=== PATIENT | female | born 1960 | race Caucasian/White ===

== ENCOUNTER 2018-03-16 15:51 | Emergency (ER) | payer OTHER ==
[~2018-03-16] VITALS: Ht 162.6 cm; Wt 70.0 kg
[~2018-03-16 15:51] MED LIST: ASCO500C PO; TAB-TAB PO
[2018-03-16 16:06] VITALS: BP 132/70; PULSE 68; RESP 18; TEMP 98.7; O2SAT 98
[2018-03-16] MEDS ORDERED: SODIUM CHLOR 0.9% 1000 ML INJ 1,000 ML IV ONE (16:13)
[2018-03-16 16:15] VITALS: BP 136/68; PULSE 61; RESP 18; O2SAT 98
[2018-03-16] MEDS ORDERED: ONDANSETRON ODT 4 MG TAB PO/SL ONE (16:15)
[2018-03-16] MEDS ORDERED: SODIUM CHLORIDE 0.9% FLUSH 10 ML FLUSH IVF PRN (16:15)
[2018-03-16 16:16] VITALS: BP_SYST 131; BP_SYST 135; BP_SYST 157; BP_DIAS 69; BP_DIAS 70; BP_DIAS 72; RESP 18; RESP 20
--- NOTE | 2018-03-16 16:20 | PD ---
HPI Chief Complaint: Syncope/Near-Syncope Time Seen by Provider: 16:04 Travel History International Travel<30 days: No Contact w/Intl Traveler<30days: No Traveled to known affect area: No History of Present Illness HPI The patient is a 58-year-old female who presents to emergency department via EMS after syncopal episode. The patient states she had 2 margaritas at lunch earlier today to celebrate her son's birthday. The patient then returned to work when she went to the bathroom became lightheaded. The patient use the restroom and then went to an office to sit down. The patient states she felt lightheaded, broke out in a sweat, and then apparently had a syncopal episode while sitting down. The patient did not fall out of the chair or strike her head. The patient states when she awakened it took her several minutes to realize where she was, she still had mild nausea, but the lightheadedness had resolved. She denied any palpitations, chest pain, or shortness of breath. The patient states she had a similar episode 2 months ago and was seen at the [facility] in [place], [place]. The patient states she was admitted and had an echocardiogram, CAT scan, and MRI performed which were all unremarkable. PFSH Past Medical History Cancer: No Cardiovascular Problems: No High Cholesterol: Yes Diabetes: No Hepatitis: No Hiatal Hernia: No Medical other: Yes (BACK) Musculoskeletal: Yes (back problems) Respiratory: No Thyroid Disease: No Tetanus Vaccination: > 5 Years Influenza Vaccination: No ?: Not Menopausal: Yes Past Surgical History Joint Replacement: No Pacemaker: No Social History Alcohol Use: No Tobacco Use: No Substance Use: No Allergies-Medications (Allergen,Severity, Reaction): Coded Allergies: No Known Allergies (Verified Adverse Reaction, Unknown, 03/16/18) Reported Meds & Prescriptions Reported Meds & Active Scripts Active No Active Prescriptions or Reported Medications Review of Systems Except as stated in HPI: all other systems reviewed are Neg General / Constitutional: No: Fever HENT: Positive: Lightheadedness Cardiovascular: Positive: Syncope, No: Chest Pain or Discomfort, Palpitations, Tachycardia, Diaphoresis Respiratory: No: Shortness of Breath Gastrointestinal: Positive: Nausea, No: Vomiting, Abdominal Pain Musculoskeletal: No: Weakness Neurologic: Positive: Syncope, No: Dizziness Physical Exam Narrative GENERAL: Awake, alert, pleasant 58-year-old female who appears her stated age and is in no acute respiratory distress. SKIN: Focused skin assessment warm/dry. HEAD: Atraumatic. Normocephalic. EYES: Pupils equal and round. No scleral icterus. No injection or drainage. ENT: No nasal bleeding or discharge. Mucous membranes pink and moist. NECK: Trachea midline. No JVD. CARDIOVASCULAR: Regular rate and rhythm. No murmur appreciated. RESPIRATORY: No accessory muscle use. Clear to auscultation. Breath sounds equal bilaterally. GASTROINTESTINAL: Abdomen soft, non-tender, nondistended. No rebound tenderness. MUSCULOSKELETAL: No obvious deformities. No clubbing. No cyanosis. No edema. NEUROLOGICAL: Awake and alert. No obvious cranial nerve deficits. Motor grossly within normal limits. Normal speech. Nonfocal. Oriented 4. PSYCHIATRIC: Appropriate mood and affect; insight and judgment normal. Data Data Last Documented VS Vital Signs Date Time Temp Pulse Resp B/P (MAP) Pulse Ox O2 Delivery O2 Flow Rate FiO2 03/16/18 16:16 67 18 135/70 (91) 58 20 131/69 (89) 73 20 157/72 (100) 03/16/18 16:15 98 Room Air 03/16/18 16:06 98.7 Orders Orders Electrocardiogram (03/16/18 16:13) Complete Blood Count With Diff (03/16/18 16:13) Comprehensive Metabolic Panel (03/16/18 16:13) Magnesium (Mg) (03/16/18 16:13) Ecg Monitoring (03/16/18 16:13) Iv Access Insert/Monitor (03/16/18 16:13) Oximetry (03/16/18 16:13) Ondansetron Odt (Zofran Odt) (03/16/18 16:15) Sodium Chloride 0.9% Flush (Ns Flush) (03/16/18 16:15) Sodium Chlor 0.9% 1000 Ml Inj (Ns 1000 M (03/16/18 16:13) Orthostatic Vital Signs (03/16/18 16:13) Alcohol (Ethanol) (03/16/18 16:13) Potassium Chloride (Kcl) (03/16/18 17:15) Ed Discharge Order (03/16/18 18:00) Labs Laboratory Tests Test 03/16/18 16:20 White Blood Count 4.5 TH/MM3 Red Blood Count 4.47 MIL/MM3 Hemoglobin 13.7 GM/DL Hematocrit 39.1 % Mean Corpuscular Volume 87.4 FL Mean Corpuscular Hemoglobin 30.7 PG Mean Corpuscular Hemoglobin Concent 35.1 % Red Cell Distribution Width 13.7 % Platelet Count 206 TH/MM3 Mean Platelet Volume 8.1 FL Neutrophils (%) (Auto) 65.7 % Lymphocytes (%) (Auto) 27.6 % Monocytes (%) (Auto) 5.3 % Eosinophils (%) (Auto) 0.8 % Basophils (%) (Auto) 0.6 % Neutrophils # (Auto) 2.9 TH/MM3 Lymphocytes # (Auto) 1.2 TH/MM3 Monocytes # (Auto) 0.2 TH/MM3 Eosinophils # (Auto) 0.0 TH/MM3 Basophils # (Auto) 0.0 TH/MM3 CBC Comment DIFF FINAL Differential Comment Blood Urea Nitrogen 19 MG/DL Creatinine 0.97 MG/DL Random Glucose 92 MG/DL Total Protein 7.9 GM/DL Albumin 4.3 GM/DL Calcium Level 8.9 MG/DL Magnesium Level 2.1 MG/DL Alkaline Phosphatase 69 U/L Aspartate Amino Transf (AST/SGOT) 17 U/L Alanine Aminotransferase (ALT/SGPT) 24 U/L Total Bilirubin 0.5 MG/DL Sodium Level 144 MEQ/L Potassium Level 3.3 MEQ/L Chloride Level 107 MEQ/L Carbon Dioxide Level 24.7 MEQ/L Anion Gap 12 MEQ/L Estimat Glomerular Filtration Rate 59 ML/MIN Ethyl Alcohol Level 110 MG/DL MDM Medical Decision Making Medical Screen Exam Complete: Yes Emergency Medical Condition: Yes Medical Record Reviewed: Yes Interpretation(s) EKG reveals normal sinus rhythm with a rate of 61. Borderline first-degree AV block. Low QRS voltage in precordial leads. Laboratory Tests Test 03/16/18 16:20 White Blood Count 4.5 TH/MM3 Red Blood Count 4.47 MIL/MM3 Hemoglobin 13.7 GM/DL Hematocrit 39.1 % Mean Corpuscular Volume 87.4 FL Mean Corpuscular Hemoglobin 30.7 PG Mean Corpuscular Hemoglobin Concent 35.1 % Red Cell Distribution Width 13.7 % Platelet Count 206 TH/MM3 Mean Platelet Volume 8.1 FL Neutrophils (%) (Auto) 65.7 % Lymphocytes (%) (Auto) 27.6 % Monocytes (%) (Auto) 5.3 % Eosinophils (%) (Auto) 0.8 % Basophils (%) (Auto) 0.6 % Neutrophils # (Auto) 2.9 TH/MM3 Lymphocytes # (Auto) 1.2 TH/MM3 Monocytes # (Auto) 0.2 TH/MM3 Eosinophils # (Auto) 0.0 TH/MM3 Basophils # (Auto) 0.0 TH/MM3 CBC Comment DIFF FINAL Differential Comment Blood Urea Nitrogen 19 MG/DL Creatinine 0.97 MG/DL Random Glucose 92 MG/DL Total Protein 7.9 GM/DL Albumin 4.3 GM/DL Calcium Level 8.9 MG/DL Magnesium Level 2.1 MG/DL Alkaline Phosphatase 69 U/L Aspartate Amino Transf (AST/SGOT) 17 U/L Alanine Aminotransferase (ALT/SGPT) 24 U/L Total Bilirubin 0.5 MG/DL Sodium Level 144 MEQ/L Potassium Level 3.3 MEQ/L Chloride Level 107 MEQ/L Carbon Dioxide Level 24.7 MEQ/L Anion Gap 12 MEQ/L Estimat Glomerular Filtration Rate 59 ML/MIN Ethyl Alcohol Level 110 MG/DL Differential Diagnosis Differential diagnosis includes vasovagal syncope, cardiogenic syncope, arrhythmia, neurogenic syncope, dehydration, electrolyte abnormality. Narrative Course IV was established, labs are drawn and sent, and the patient was placed on cardiac telemetry monitoring and continuous pulse oximetry monitoring. EKG was ordered and interpreted. Orthostatic vital signs were obtained. We attempted to obtain the records from [facility] and [place], [place] in regards to her previous hospitalization for syncope. The patient was administered and IV fluids and Zofran. Orthostatic vital signs were unremarkable. CBC is unremarkable, no evidence of symptomatic anemia. BUN is slightly elevated at 19, may be consistent with mild dehydration. Alcohol level was just greater than 100. Potassium is slightly low at 3.3, therefore, was replaced orally. The patient was reevaluated at 6 PM, her symptoms had resolved. The patient was ambulatory. We are unable to obtain records from [facility], however, we are unable to obtain records from [facility]. The patient does agree to return if symptoms worsen or progress. Diagnosis Primary Impression: Syncope Qualified Codes: R55 - Syncope and collapse Patient Instructions: General Instructions Additional Instructions: Please provide the patient a copy of her lab results at discharge. Return if symptoms worsen or progress. Plenty fluids to stay hydrated. Med/Other Pt SpecificInfo: No Change to Meds Scripts No Active Prescriptions or Reported Meds Disposition: 01 DISCHARGE HOME Condition: Stable Julio Doty MD Mar 16, 2018 16:20
[2018-03-16 16:39] LABS: AUTOMATED NEUTROPHIL # 2.9 TH/MM3 (1.8-7.7); BASOPHIL % 0.6 % (0.0-2.0); EOSINOPHIL % 0.8 % (0.0-4.0); HEMATOCRIT 39.1 % (35.0-46.0); HEMOGLOBIN 13.7 GM/DL (11.6-15.3); LYMPH % 27.6 % (9.0-44.0); LYMPHOCYTE # 1.2 TH/MM3 (1.0-4.8); MEAN CELL VOLUME 87.4 FL (80.0-100.0); MEAN CORPUSCULAR HEMOGLOBIN 30.7 PG (27.0-34.0); MEAN CORPUSCULAR HGB CONC 35.1 % (32.0-36.0); MEAN PLATELET VOLUME 8.1 FL (7.0-11.0); MONO % 5.3 % (0.0-8.0); MONOCYTE # 0.2 TH/MM3 (0-0.9); NEUT % 65.7 % (16.0-70.0); PLATELET COUNT 206 TH/MM3 (150-450); RED BLOOD COUNT 4.47 MIL/MM3 (4.00-5.30); RED CELL DISTRIBUTION WIDTH 13.7 % (11.6-17.2); WHITE BLOOD COUNT 4.5 TH/MM3 (4.0-11.0)
[2018-03-16 17:00] LABS: ALBUMIN 4.3 GM/DL (3.4-5.0); AST (GOT) 17 U/L (15-37); BICARBONATE 24.7 MEQ/L (21.0-32.0); BLOOD UREA NITROGEN 19 MG/DL (7-18); CALCIUM 8.9 MG/DL (8.5-10.1); CHLORIDE 107 MEQ/L (98-107); CREATININE 0.97 MG/DL (0.50-1.00); GLOMERULAR FILTRATION RATE 59 ML/MIN (>89); GLUCOSE,RANDOM 92 MG/DL (74-106); MAGNESIUM 2.1 MG/DL (1.5-2.5); SODIUM (NA) 144 MEQ/L (136-145)
[2018-03-16 17:04] LABS: ALKALINE PHOSPHATASE 69 U/L (45-117); ALT (GPT) 24 U/L (10-53); TOTAL BILIRUBIN ADULT 0.5 MG/DL (0.2-1.0); TOTAL PROTEIN 7.9 GM/DL (6.4-8.2)
[2018-03-16] MEDS ORDERED: POTASSIUM CHLORIDE 20 MEQ CONTROLLED RELEASE TAB PO ONE (17:15)
--- NOTE | 2018-03-17 15:05 | EKG ---
Date Performed: 03/16/2018 Time Performed: 15:47:26 PTAGE: 58 years EKG: Sinus rhythm WITH FIRST DEGREE AV BLOCK LOW QRS VOLTAGE IN PRECORDIAL LEADS ABNORMAL ECG PREVIOUS TRACING : 10/10/2012 11.30 Since the previous tracing, no significant change noted DOCTOR: Haim Herrera Interpretating Date/Time 03/17/2018 15:04:35
== END 2018-03-16 18:23 | disposition home or self-care (01) ==
LOC: NEPE 15:51
DX: R55 Syncope and collapse (principal)
CPT/HCPCS: 80053; 80307; 83735; 85025; 93005; 96360; 99284; J7030